=== PATIENT | female | born 1940 | race Caucasian/White ===

== ENCOUNTER 2017-07-04 12:29 | Emergency (ER) | payer MEDICARE, BC ==
[~2017-07-04] VITALS: Ht 165.1 cm; Wt 77.1 kg
--- NOTE | ~2017-07-04 | CR72 ---
[facility] A Service of [facility] & [facility] RADIOLOGY TEXT RESULTS PATIENT: CONCHITA VELA LOCATION: [facility] : 42 UNIT #: [id number] AGE: [address]: Claudia Matthew MD SEX: F ORDER DR: [id number] [facility] [address] [place], [place] [address] [id number] E MR#: [id number] Acc #: [id number] NAME: CONCHITA VELA : 1940 SEX: F STUDY DATE/TIME: 07/04/2017 14:19 UNIT: [facility] ROOM: STUDY DESCRIPTION: CR Chest Single View Portable Attending Physician: Claudia Matthew M.D. Ordering Physician: Claudia Matthew M.D. Primary Care Physician: Primary Care Physician No MEDICAL IMAGING REPORT This report is preliminary unless electronic signature is present EXAM Portable chest HISTORY Generalized weakness, dehydration and shortness of air today. FINDINGS Moderate elevation of the left hemidiaphragm is similar to 04/01/2008. Minimal linear atelectasis or scarring in the left base. Tiny calcified granuloma in the left upper lobe is also unchanged. No airspace infiltrates or effusions. Cardiac and mediastinal contours are within normal limits. Mild left upper thoracic curve and minimal right lower thoracic curve. IMPRESSION No acute findings and no active disease. Dictated by... Israel Melgar M.D. THIS IS AN ELECTRONICALLY VERIFIED REPORT Israel Melgar M.D. at 07/05/2017 11:44 PM DFL/ismael TD: 07/05/2017 01:18 JOB #: [id number] MEDICAL IMAGING REPORT Page 1 of 1 COPY
--- NOTE | ~2017-07-04 | EKG ---
PATIENT: CONCHITA VELA UNIT #: [id number] Ventricular Rate: 63 BPM Atrial Rate: 63 BPM P-R Interval: 160 ms QRS Duration: 76 ms Q-T Interval: 372 ms QTC Calculation(Bezet): 380 ms P [place]: 35 degrees Calculated R [place]: -3 degrees Calculated T [place]: 13 degrees Diagnosis Line: Normal sinus rhythm with sinus arrhythmia Diagnosis Line: Increased R/S ratio in V1, consider early Diagnosis Line: transition or posterior infarct Diagnosis Line: Abnormal ECG Diagnosis Line: No previous ECGs available Diagnosis Line: Confirmed by ARTI PATEL MD ([id number]) on Diagnosis Line: 07/04/2017 4:45:07 PM INTERPRETING MD: JORGE KENNY
[2017-07-04 14:20] LABS: BASOPHIL# 0.1 X10e3 (0-0.3); BASOPHIL% 1.2 % (0-2.5); EOSINOPHIL% 0.5 % (0.0-7.0); HEMOGLOBIN 13.5 gm/dL (12.0-16.0); LYMPHOCYTE# 1.5 X10e3 (1.0-3.5); LYMPHOCYTE% 22.5 % (17.0-45.0); MEAN CELL VOLUME 88.4 FL (83-96); MEAN CORPUSCULAR HEMOGLOBIN 29.8 PG (28-34); MEAN CORPUSCULAR HGB CONC 33.7 g/dL (30-36); MEAN PLATELET VOLUME 8.2 FL (6.5-11.5); MONOCYTE# 0.5 X10e3 (0-1.0); NEUTROPHIL# 4.5 X10e3 (1.5-7.1); NEUTROPHIL% 68.8 % (40-75); PLATELET COUNT 197 X10e3 (140-420); RED BLOOD COUNT 4.53 X10e (3.90-5.30); RED CELL DISTRIBUTION WIDTH 13.8 % (11.0-15.5); WHITE BLOOD COUNT 6.5 X10e3 (4.0-10.5)
[2017-07-04 14:21] LABS: URINE SOURCE CLEAN CATCH
[2017-07-04 14:23] LABS: DIFF IND NO
[2017-07-04 14:28] LABS: POC - CKMB <1.0 ng/mL (0.0-7.9); POC - TROPONIN <0.05 ng/mL (<=0.05)
[2017-07-04 14:35] LABS: URINE APPEARANCE TURBID; URINE BILIRUBIN NEG (NEG); URINE BLOOD TRACE (NEG); URINE COLOR YELLOW; URINE GLUCOSE NEG (NEG); URINE KETONE TRACE (NEG); URINE LEUKOCYTE ESTERASE 3+ (NEG); URINE NITRATE POS (NEG); URINE PROTEIN NEG (NEG); URINE SPECIFIC GRAVITY 1.016 (1.003-1.035); URINE UROBILINOGEN 0.2 MG/DL (NEG)
[2017-07-04 14:38] LABS: CULTURE INDICATED? YES; PARTIAL THROMBOPLASTIN TIME 23.6 SECONDS (23.5-31.3); PROTHROMBIN TIME (PATIENT) 10.7 SECONDS (10.0-11.7); URINE BACTERIA AUWI 4+ (NEGATIVE); URINE SQUAMOUS EPITHELIAL CELL NONE SEEN /[HPF]; UWBCS1 AUWI 200-300 (0-5)
[2017-07-04 14:42] LABS: ALBUMIN SERUM 3.9 g/dL (3.5-5.0); BILIRUBIN, DIRECT 0.1 mg/dL (0.0-0.2); BILIRUBIN,INDIRECT 0.6 mg/dL (0.0-0.9); BILIRUBIN,TOTAL 0.7 mg/dL (0.2-2.0); BUN/CREATININE RATIO 21.11; CALCIUM SERUM 10.1 mg/dL (8.4-10.2); CREATININE SERUM 0.9 mg/dL (0.6-1.4); GLOM FILT RATE Estimated 62.2 mL/min (>60); MAGNESIUM 2.2 mg/dL (1.6-3.0); POTASSIUM 4.2 mmol/L (3.5-5.1); PROTEIN TOTAL SERUM 6.5 g/dL (6.0-8.3)
== END 2017-07-04 17:00 | disposition home or self-care (01) ==
LOC: CED 12:29
PROVIDERS: Emergency Medicine
DX: R53.1 Weakness (principal); N30.00 Acute cystitis without hematuria; I10 Essential (primary) hypertension; Z90.710 Acquired absence of both cervix and uterus
CPT/HCPCS: 36415; 71010; 80048; 80076; 81003; 82553; 83735; 84484; 85025; 85610; 85730; 87086; 87088; 87186; 93005; 96360; 96374; 99285; J0696